=== PATIENT | female | born 1970 | race Caucasian/White ===

== ENCOUNTER 2020-08-02 10:26 | Outpatient (CLI) | payer MEDICAID, SELFPAY ==
--- NOTE | 2020-08-02 10:34 | MM_ITS ---
WS: [id number] BILATERAL DIGITAL SCREENING MAMMOGRAPHY WITH CAD CLINICAL INFORMATION: SCREENING HISTORY: Screening mammogram. No current complaints. COMPARISON: TECHNIQUE: Bilateral CC and MLO views. FINDINGS: Scattered fibroglandular densities bilaterally. Stable bilateral nodular breast tissue. No suspicious focal mass, asymmetry, calcifications, or architectural distortion. No evidence of malignancy. Punct ate calcifications right breast. MM/[place] [id number] IMPRESSION: BI-RADS: 2-Benign FOLLOW UP: 1 Year Follow-up Recommend return to annual screening mammography.
== END 2020-08-02 10:27 | disposition home or self-care (01) ==
LOC: RADSHAW 10:32
PROVIDERS: PCP Nurse Practitioner Family; Visit Provider Nurse Practitioner Family
DX: Z12.31 Encounter for screening mammogram for malignant neoplasm of breast (principal)
CPT/HCPCS: 77067

== ENCOUNTER 2020-11-10 08:01 | Emergency (ER) | payer MEDICAID, SELFPAY ==
[2020-11-10 08:12] VITALS: BP 126/79; PULSE 71; RESP 15; TEMP 36.1; O2SAT 96; BMI 33.8
--- NOTE | 2020-11-10 08:17 | W.ED.FEMALGU ---
HPI - Female Genitourinary General: Chief complaint: Urogenital-Female Stated complaint: urinary pain Time Seen by Provider: 11/10/20 08:05 History of Present Illness: HPI Narrative: Patient is a 50-year-old female comes to the ED with UTI symptoms. Patient reports a past medical history of kidney stones and has had a total hysterectomy. Patient had a UTI approximately 2 weeks ago that resolved after taking some antibiotics. Symptoms started 2 days ago. Patient says she has urinary frequency, hematuria, burning sensation when urinating and pressure in her bladder. Denies any fever, chills, abdominal pain, nausea/vomiting. Associated symptoms: Deny abdominal pain, headache(s) or nausea Review of Systems Const: Denies: fever(s), chills or fatigue Eyes: Denies: change in vision or eye discomfort ENMT: Denies: throat pain, odynophagia, nasal discharge or nasal congestion Card: Denies: chest pain, palpitations, edema, swelling of feet/ankles, dyspnea on exertion or orthopnea Resp: Denies: dyspnea, productive cough or non-productive cough GI: Denies: abdominal pain, nausea, vomiting, diarrhea, constipation or hematochezia : Reports: dysuria, urinary frequency (Increase) and hematuria; Denies: flank pain Musc: Denies: neck pain, back pain or extremity swelling Skin/Breast: Denies: rash or new lesions Neuro: Denies: headache(s), numbness in extremities or weakness in extremities PFS ED PFSH: Social History Smoking and tobacco status: current every day smoker cigarettes Packs smoked per day: 0.5 Alcohol intake: current Alcohol intake frequency: few times a month Substance/Drug Use: current Substance/Drug use frequency: daily Substance/Drug use type: Marijuana Physical Exam Narrative: EXAM NARRATIVE: Patient is a 50-year-old female that appears nontoxic and in no acute distress or pain. Const: COMMON NORMALS: no acute distress, patient oriented x3 and alert GENERAL APPEARANCE: cooperative and comfortable NUTRITIONAL APPEARANCE: overweight HENMT: COMMON NORMALS: normocephalic HEAD & SCALP: normocephalic MOUTH: Normal oral and palatal mucosa present THROAT: posterior oropharynx normal and uvula midline Neck/C-Spine: COMMON NORMALS: supple GENERAL: Yes normal visual inspection Resp: COMMON NORMALS: normal respiratory effort, No retractions, No use of accessory muscles and clear to auscultation bilaterally AUSCULTATION: clear to auscultation bilaterally Cardio: COMMON NORMALS: regular rate, regular rhythm, S1 normal heart sound present, S2 normal heart sound present, No gallops present (Cardio), No clicks present (Cardio), No murmurs present (Cardio) and Peripheral pulses 2+ throughout RATE: regular rate RHYTHM: regular rhythm HEART SOUNDS: S1 normal heart sound present and S2 normal heart sound present PERIPHERAL PULSES: Peripheral pulses 2+ throughout GI: COMMON NORMALS: Normal to inspection, nondistended, normoactive bowel sounds present, Soft to palpation, non-tender and no masses PALPATION: Yes Soft to palpation OTHER: No abdominal tenderness upon palpation. : COMMON NORMALS: Yes no CVA tenderness BLADDER/KIDNEY EXAM: Yes no CVA tenderness Back/Pelvis: COMMON NORMALS: no CVA tenderness Extremity: COMMON NORMALS: normal to inspection Neuro: COMMON NORMALS: patient oriented x3 and moves all extremities SENSORIUM/ORIENTATION: Yes alert Skin: GENERAL SKIN EXAM: dry skin Course Vital Signs: Vital signs: Vital Signs Temperature 97.0 F L 11/10/20 08:12 Pulse Rate 70 11/10/20 09:14 Respiratory Rate 18 11/10/20 09:14 Blood Pressure 120/81 11/10/20 09:14 Pulse Oximetry 98 11/10/20 09:14 MDM - Female MDM Narrative: Medical decision making narrative: Patient is a 50-year-old female comes to the ED with UTI symptoms. Exam shows a nontoxic-appearing 50-year-old female in no acute distress or pain. Vitals are stable. CBC and CMP were unremarkable. UA showed signs of UTI. Patient was diagnosed with UTI and discharged home on a prescription of Bactrim. She was told follow-up with PCP in 7 to 10 days for reevaluation. Return to ED precautions given. Patient understood agree with plan. Lab Data: Attestation: I reviewed the patient's lab results. Labs: Lab Results 11/10/20 11/10/20 11/10/20 Range/Units 08:20 08:20 08:20 WBC 10.0 (4.0-10.0) 10^3/ uL RBC 4.93 (4.1-5.3) 10^6/u L Hgb 15.1 (11.5-15.3) g/dL Hct 44.9 (37.0-47.0) % MCV 91.1 (81-99) fL MCH 30.6 (28.0-34.0) pg MCHC 33.6 (30.0-36.0) g/dL RDW 12.8 (12.1-15.1) % Plt Count 365 (130-400) 10^3/c mm MPV 9.7 (7.4-10.4) fL Neut % (Auto) 59.5 % Lymph % (Auto) 27.4 % [place] % (Auto) 9.4 % Eos % (Auto) 2.6 % Baso % (Auto) 0.8 % Neut # (Auto) 5.95 (1.8-7.7) 10^3/u L Lymph # (Auto) 2.7 (0.8-4.8) 10^3/u L [place] # (Auto) 0.9 (0.2-0.9) 10^3/u L Eos # (Auto) 0.3 (0.0-0.8) 10^3/u L Baso # (Auto) 0.1 (0.0-0.1) 10^3/u L Nucleated RBC % (a uto) 0 % Nucleated RBCs # 0.0 /100WBC Sodium 137 (136-145) mmol/L Potassium 4.0 (3.5-5.1) mmol/L Chloride 104 (98-107) mmol/L Carbon Dioxide 24 (22-29) mmol/L Anion Gap 13.0 (5-19) BUN 16 (6-20) mg/dL Creatinine 0.5 (0.5-0.9) mg/dL GFR Calculation 129.6 (90-130) mL/min Glucose 108 (65-115) mg/dL Calculated Osmolal ity 286 (285-295) mOsm/k g Calcium 8.5 (8.5-10.5) mg/dL Total Bilirubin 0.3 (0.15-1.2) mg/dL AST 12 (0-32) U/L ALT 9 (0-33) U/L Alkaline Phosphata se 56 (35-105) IU/L Total Protein 6.7 (6.6-8.7) g/dL Albumin 4.0 (3.5-5.2) g/dL Globulin 2.7 (1.3-4.6) g/dL Lipase 29 (13-60) U/L Urine Color [place] (Yellow) Urine Appearance Clear (CLEAR) Urine pH 5 (5-7) Ur Specific Gravit y 1.020 (1.005-1.030) Urine Protein 3+ H (Negative) Urine Glucose (UA) Norm (Normal) Urine Ketones Negative (Negative) Urine Blood 2+ H (Negative) Urine Nitrate Not tested A (Negative) Urine Bilirubin 2+ H (Negative) Urine Urobilinogen 12 H (Negative) mg/dL Ur Leukocyte Samantha ase 1+ H (Negative) Urine RBC 10-15 H (0-2) /hpf Urine WBC Too numerous to c nt H (0-5) /hpf Ur Squamous Epith Cells 5-10 H (0-5) /hpf Ur Transition Epit h Cell 0-4 /hpf Amorphous Sediment Not Reportable Urine Bacteria 1+ H (NONE) /hpf Discharge Plan Discharge Patient Disposition: Home Clinical Impression: Urinary tract infection Qualifiers: Urinary tract infection type: acute cystitis Hematuria presence: with hematuria Qualified Code(s): N30.01 - Acute cystitis with hematuria Condition: Stable Prescriptions: New Bactrim DS 800-160 mg tablet 1 tab PO BID 7 Days Qty: 14 RF: 0 Discharge Orders: Discharge ED (Routine); Ordered 11/10/20 Ordered By: Soto Guerra Referrals: Liliana Lam APN [Primary Care Provider] - Discharge Diet: Regular Discharge Activity: Resume usual activity Patient Instructions: Urinary Tract Infection in Women (ED) Activity Restrictions/Additional Instructions: Follow-up with medical provider at your next scheduled appointment on this coming Friday. Take medications as prescribed. Drink plenty of water to help flush out infection. Return to the ER or your medical provider if condition worsens. Please read and understand discharge instructions. If any questions, please ask. 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
[2020-11-10 08:33] LABS: Basophils # 0.1 10^3/uL (0.0-0.1); Basophils % 0.8 %; Eosinophils # 0.3 10^3/uL (0.0-0.8); Eosinophils % 2.6 %; Hematocrit 44.9 % (37.0-47.0); Hemoglobin 15.1 g/dL (11.5-15.3); Lymphocytes # 2.7 10^3/uL (0.8-4.8); Lymphocytes % 27.4 %; Mean Corpuscular HGB Conc 33.6 g/dL (30.0-36.0); Mean Corpuscular Hemoglobin 30.6 pg (28.0-34.0); Mean Corpuscular Volume 91.1 fL (81-99); Mean Platelet Volume 9.7 fL (7.4-10.4); Monocytes # 0.9 10^3/uL (0.2-0.9); Monocytes % 9.4 %; Neutrophils # 5.95 10^3/uL (1.8-7.7); Neutrophils % 59.5 %; Nucleated Red Blood Cells % 0 %; Platelet Count 365 10^3/cmm (130-400); Red Blood Count 4.93 10^6/uL (4.1-5.3); Red Cell Distribution Width 12.8 % (12.1-15.1)
[2020-11-10 08:52] LABS: Alanine Aminotransferase 9 U/L (0-33); Alkaline Phosphatase 56 IU/L (35-105); Aspartate Amino Transferase 12 U/L (0-32); Blood Urea Nitrogen 16 mg/dL (6-20); Calcium 8.5 mg/dL (8.5-10.5); Carbon Dioxide 24 mmol/L (22-29); Chloride 104 mmol/L (98-107); Globulin 2.7 g/dL (1.3-4.6); Glomerular Filtration Rate 129.6 mL/min (90-130); Glucose 108 mg/dL (65-115); Lipase 29 U/L (13-60); Osmolality Calculated 286 mOsm/kg (285-295); Sodium 137 mmol/L (136-145); Total Bilirubin 0.3 mg/dL (0.15-1.2); Total Protein 6.7 g/dL (6.6-8.7)
[2020-11-10 08:56] LABS: Blood Urine 2+ (Negative); Glucose Urine UA Norm (Normal); Ketones Urine Negative (Negative); Protein Urine 3+ (Negative); Urine Appearance Clear (CLEAR); Urine Color Orange (Yellow); pH Urine 5 (5-7)
[2020-11-10 08:57] LABS: Bilirubin Urine 2+ (Negative); Leukocyte Esterase Urine 1+ (Negative); Nitrate Urine Not Tested (Negative); Urobilinogen Urine 12 mg/dL (Negative); WBC Urine TOO NUMEROUS TO CNT /hpf (0-5)
[2020-11-10 08:58] LABS: Bacteria Urine 1+ /hpf; Transitional Epi Cells Urine 0-4 /hpf
[2020-11-10 08:59] LABS: Add Urine Culture? Yes
[2020-11-10] MEDS: sulfamethoxazole-trimeth DS 160-800 mg Tablet 1 TAB PO (09:09)
[2020-11-10 09:14] VITALS: BP 120/81; PULSE 70; RESP 18; O2SAT 98
== END 2020-11-10 09:15 | disposition home or self-care (01) ==
PROVIDERS: Emergency Provider Physician Assistant; PCP Nurse Practitioner Family
DX: N30.01 Acute cystitis with hematuria (principal); F17.210 Nicotine dependence, cigarettes, uncomplicated
CPT/HCPCS: 80053; 81001; 83690; 85025; 87077; 87086; 87186; 99283

== ENCOUNTER 2020-12-13 16:13 | Emergency (ER) | payer MEDICAID, SELFPAY ==
[2020-12-13 16:50] VITALS: BP 116/71; PULSE 75; RESP 18; TEMP 36.7; O2SAT 95; BMI 32.9
--- NOTE | 2020-12-13 17:06 | W.ED.EXTPRO ---
HPI - Extremity Problem General: Chief complaint: Extremity Problem,Nontraumatic Stated complaint: LEFT ARM INJURY Time Seen by Provider: 12/13/20 17:05 Source: patient Mode of arrival: ambulatory Limitations: no limitations History of Present Illness: HPI Narrative: Patient comes in today with left proximal forearm pain. Patient denies any injury or fall. Patient reports area is just tender just distal to the dorsal elbow along the proximal ulna. Patient reports pain since Friday. MD Complaint: extremity pain Onset (ago): day(s) Pain Consistency: constant Location: left and elbow Quality: aching and other (Tender to touch) Review of Systems General: Reports: 10 or more systems reviewed and unremarkable except in HPI and below Musc: Reports: other (Left proximal forearm pain) PFSH ED PFSH: Social History Smoking and tobacco status: current every day smoker cigarettes Packs smoked per day: 0.5 Alcohol intake: current Alcohol intake frequency: few times a month Physical Exam Const: COMMON NORMALS: no acute distress and patient oriented x3 GENERAL APPEARANCE: cooperative HENMT: COMMON NORMALS: normocephalic and Normal external nose present HEAD & SCALP: normal to inspection and normocephalic NOSE: Normal external nose present Eye: GENERAL EYE: appearance normal, both eyes and all related structures Neck/C-Spine: COMMON NORMALS: full ROM Chest: COMMONS NORMALS: normal inspection of the chest Resp: COMMON NORMALS: normal respiratory effort EFFORT & INSPECTION: Yes able to speak in complete sentences Cardio: COMMON NORMALS: regular rate and regular rhythm RATE: regular rate RHYTHM: regular rhythm GI: COMMON NORMALS: non-tender Extremity: NARRATIVE EXTREMITY EXAM: Area appears normal, no sign of ecchymosis, swelling, deformity. Area of the proximal ulnar is tender to touch. Neuro: COMMON NORMALS: patient oriented x3 and moves all extremities Psych: COMMON NORMALS: mental status grossly normal and cooperative Skin: COMMON NORMALS: no rashes or lesions noted GENERAL SKIN EXAM: no rashes or lesions noted Course Vital Signs: Vital signs: Vital Signs Temperature 98.0 F 12/13/20 16:50 Pulse Rate 75 12/13/20 16:50 Respiratory Rate 18 12/13/20 16:50 Blood Pressure 116/71 12/13/20 16:50 Pulse Oximetry 95 12/13/20 16:50 MDM - Extremity (Nontraumatic) MDM Narrative: Medical decision making narrative: Patient comes in for left elbow pain. Patient denies any injury. On exam we note no signs of ecchymosis, swelling, or deformity. Patient does have tenderness to the proximal area of the forearm on the ulnar side. Differential diagnosis includes but not limited to tendinitis, strain, bursitis. X-ray noted no fractures or abnormalities. Reviewed exam with patient with recommendations for treatment and follow-up. Patient reported understanding agreed to plan. No signs of serious illness or injury was noted. Discharge Plan Discharge Patient Disposition: Home Clinical Impression: Tendinitis of left elbow Condition: Stable Prescriptions: New prednisone 20 mg tablet 20 mg PO BID 3 Days Qty: 6 RF: 0 No Action ibuprofen 800 mg Tablet 800 mg PO Q8H PRN (Reason: Pain) RF: 0 lisinopril-hydrochlorothiazide 20-25 mg Tablet 1 tab PO DAILY RF: 0 albuterol sulfate 90 mcg/actuation Hfa Aerosol Inhaler 2 puff INHALATION 6XD PRN (Reason: Shortness Of Breath) RF: 0 bupropion HCl 300 mg Tablet Extended Release 24 Hr 300 mg PO DAILY RF: 0 Estrogen Patch 0.1 ea transdermal Q7D RF: 0 Discharge Orders: Discharge ED (Routine); Ordered 12/13/20 Ordered By: Emeterio Sanches Referrals: Liliana Lam APN [Primary Care Provider] - Discharge Diet: Usual diet Discharge Activity: Increase activity as tolerated Patient Instructions: Opioid Safety Activity Restrictions/Additional Instructions: Use Kan wrap to the elbow for comfort and support. Use acetaminophen along with ibuprofen for pain control. Use ice or heat to the area for further pain relief. Drink plenty of water with medication. Follow-up with primary care for further instruction. Return to the emergency room for new concerns. 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
--- NOTE | 2020-12-13 17:14 | XRR_ITS ---
PROCEDURE INFORMATION: Exam: XR Left Forearm Exam date and time: 12/13/2020 5:23 PM Age: 50 years old Clinical indication: Pain; Lower or forearm; Left; Additional info: Pain, proximal forearm TECHNIQUE: Imaging protocol: XR Left forearm. Views: 2 views. COMPARISON: No relevant prior studies available. FINDINGS: Bones/joints: Normal. Soft tissues: Normal. XR/XR forearm LT 2V [id number] IMPRESSION: Negative for fracture or dislocation
== END 2020-12-13 18:03 | disposition home or self-care (01) ==
PROVIDERS: Emergency Provider Nurse Practitioner Family; PCP Nurse Practitioner Family
DX: M77.8 Other enthesopathies, not elsewhere classified (principal); F17.210 Nicotine dependence, cigarettes, uncomplicated
CPT/HCPCS: 73090; 99282

== ENCOUNTER 2021-04-16 12:45 | Outpatient (CLI) | payer MEDICAID, SELFPAY ==
--- NOTE | 2021-04-16 12:57 | XR_ITS ---
WS: [id number] Right wrist, 4 views, 04/16/2021 Clinical Data: PAIN IN RIGHT WRIST Comparison: None. Findings: No fractures or dislocations are seen. The carpal bones are intact. There is no soft tissue swelling. The distal radius and ulna are not remarkable. XR/XR wrist RT min 3V* [id number] Impression: Negative right wrist.
== END 2021-04-16 12:46 | disposition home or self-care (01) ==
LOC: RAD 12:49
PROVIDERS: PCP Nurse Practitioner Family; Visit Provider Nurse Practitioner Family
DX: M25.531 Pain in right wrist (principal)
CPT/HCPCS: 73110

== ENCOUNTER → 2021-10-04 10:46 | Outpatient (BNVA) | payer MEDICAID, SELFPAY | PROVIDERS: PCP Nurse Practitioner Family; Visit Provider Family Medicine | DX: N93.9 Abnormal uterine and vaginal bleeding, unspecified (principal); E89.40 Asymptomatic postprocedural ovarian failure; Z13.220 Encounter for screening for lipoid disorders; Z13.6 Encounter for screening for cardiovascular disorders; Z11.59 Encounter for screening for other viral diseases; Z11.4 Encounter for screening for human immunodeficiency virus [HIV]; Z71.1 Person with feared health complaint in whom no diagnosis is made; I10 Essential (primary) hypertension; Z76.89 Persons encountering health services in other specified circumstances; F41.1 Generalized anxiety disorder | CPT/HCPCS: 80053; 80061; 84443; 85025; 86431; 86803; 87522; 87806 ==

== ENCOUNTER 2021-11-19 04:52 | Emergency (ER) | payer MEDICAID, SELFPAY ==
[2021-11-19 04:59] VITALS: BP 146/107; PULSE 102; RESP 21; TEMP 36.7; O2SAT 97; BMI 31.1
[2021-11-19 05:18] VITALS: BP 173/106; PULSE 93; RESP 20; O2SAT 97
--- NOTE | 2021-11-19 05:29 | ECG_ITS ---
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 Measurements Intervals [place] Rate: 87 P: 58 HI: 168 QRS: 54 QRSD: 95 T: 59 QT: 353 QTc: 426 Interpretive Statements SINUS RHYTHM Compared to ECG 01/18/2016 09:02:15 No significant changes Electronically Signed On 11-19-2021 21:34:42 CDT by Mayank Sparrow M.D. [email or web address] [email or web address]/store/[id number]
[2021-11-19] MEDS: orphenadrine 30 mg/mL Inj 2 mL 60 MG IM (05:35)
[2021-11-19 06:00] LABS: Basophils # 0.1 10^3/uL (0.0-0.1); Basophils % 0.7 %; Eosinophils # 0.1 10^3/uL (0.0-0.8); Eosinophils % 0.7 %; Hematocrit 42.1 % (37.0-47.0); Hemoglobin 13.9 g/dL (11.5-15.3); Lymphocytes # 4.3 10^3/uL (0.8-4.8); Lymphocytes % 31.1 %; Mean Corpuscular Hemoglobin 30.1 pg (28.0-34.0); Mean Corpuscular Volume 91.1 fl (81-99); Monocytes # 1.1 10^3/uL (0.2-0.9); Neutrophils # 8.19 10^3/uL (1.8-7.7); Neutrophils % 59.2 %; Nucleated Red Blood Cells % 0 %; Platelet Count 394 10^3/cmm (130-400); Red Blood Count 4.62 10^6/uL (4.1-5.3); Red Cell Distribution Width 12.5 % (12.1-15.1); White Blood Count 13.8 10^3/uL (4.0-10.0)
[2021-11-19 06:19] LABS: Alanine Aminotransferase 14 U/L (0-33); Albumin Level 3.8 g/dL (3.5-5.2); Alkaline Phosphatase 75 IU/L (35-105); Anion Gap 16.2 (5-19); Aspartate Amino Transferase 14 U/L (0-32); Blood Urea Nitrogen 10 mg/dL (6-20); Calcium 9.3 mg/dL (8.5-10.5); Carbon Dioxide 25 mmol/L (22-29); Chloride 104 mmol/L (98-107); Creatine Phosphokinase 45 U/L (26-192); Globulin 2.8 g/dL (1.3-4.6); Glomerular Filtration Rate 129.1 mL/min (90-130); Glucose 103 mg/dL (65-115); Osmolality Calculated 293 mOsm/kg (285-295); Potassium 3.2 mmol/L (3.5-5.1); Sodium 142 mmol/L (136-145); Total Bilirubin 0.3 mg/dL (0.15-1.2); Total Protein 6.6 g/dL (6.6-8.7)
[2021-11-19 06:21] LABS: Troponin T (5th) Once 8 ng/L (0-10)
[2021-11-19] MEDS: potassium chloride ER 20 mEq Tablet 40 MEQ PO (06:45)
[2021-11-19 06:48] VITALS: PULSE 88; RESP 16; O2SAT 99
--- NOTE | 2021-11-23 19:05 | ED_ITS ---
HPI - General Adult General: Chief complaint: General Medical Stated complaint: Body pain/Muscle spasms Time Seen by Provider: 11/19/21 05:05 Source: patient History of Present Illness: 51-year-old female who comes in with neck and shoulder pain. She thinks that she is having muscle pain related to helping move furniture 4 days ago or so. She is tried rubs, and some massage with minimal improvement. Onset (ago): day(s) Location: neck and upper extremity Radiation: back Quality: aching Pain Consistency: constant Relieving factors: none Exacerbating factors: movement Associated symptoms: Reports headache(s) and nausea; Deny chest pain, cough, dyspnea, fevers/chills, short of breath, vomiting or weakness Review of Systems Card: Denies: chest pain Resp: Denies: dyspnea, productive cough or non-productive cough GI: Reports: nausea; Denies: vomiting Musc: Reports: neck pain Neuro: Reports: headache(s) PFSH ED PFSH: Social History Smoking and tobacco status: never smoked Alcohol intake: current Alcohol intake frequency: few times a month Physical Exam Const: GENERAL APPEARANCE: cooperative; not ill appearing HENMT: COMMON NORMALS: normocephalic, atraumatic and external ears normal HEAD & SCALP: normocephalic and atraumatic EXTERNAL EAR: Yes external ears normal Eye: COMMON NORMALS: Equal, round and reactive pupils present and EOMs intact bilaterally PUPIL: Yes Equal, round and reactive pupils present Chest: COMMONS NORMALS: normal inspection of the chest Resp: COMMON NORMALS: normal respiratory effort, No use of accessory muscles and clear to auscultation bilaterally AUSCULTATION: clear to auscultation bilaterally Cardio: COMMON NORMALS: regular rate and regular rhythm RATE: regular rate RHYTHM: regular rhythm GI: COMMON NORMALS: Normal to inspection, nondistended, normoactive bowel sounds present Back/Pelvis: OTHER: Exam of the cervical spine reveals no midline tenderness. She has significant muscle spasm of the paraspinal musculature in the left cervical and upper thoracic spine. She has spasm of her sternocleidomastoid. She has appearance of torticollis. Neuro: RUBI COMA SCALE: document GCS findings [place] coma scale eye opening: Spontaneous [place] coma scale verbal response: Orientated Rubi coma scale motor response: Obey commands Rubi coma scale total score: 15 Course Vital Signs: Vital signs: Vital Signs Temperature 98.1 F 11/19/21 04:59 Pulse Rate 88 11/19/21 06:48 Respiratory Rate 16 11/19/21 06:48 Blood Pressure 173/106 11/19/21 05:18 Pulse Oximetry 99 11/19/21 06:48 MDM - General Adult Medical Decision Making Laboratory findings show significant hypokalemia. This is repleted. May be the cause of her torticollis. She is given muscle relaxers and pain medication with some improvement as well. She will be allowed discharged with symptomatic treatment. She was told to have her potassium retested early in the week Lab Data : 11/19/21 05:49 11/19/21 05:49 Laboratory Results WBC 13.8 10^3/uL (4.0-10.0) H 11/19/21 05:49 RBC 4.62 10^6/uL (4.1-5.3) 11/19/21 05:49 Hgb 13.9 g/dL (11.5-15.3) 11/19/21 05:49 Hct 42.1 % (37.0-47.0) 11/19/21 05:49 MCV 91.1 fl (81-99) 11/19/21 05:49 MCH 30.1 pg (28.0-34.0) 11/19/21 05:49 MCHC 33.0 g/dL (30.0-36.0) 11/19/21 05:49 RDW 12.5 % (12.1-15.1) 11/19/21 05:49 Plt Count 394 10^3/cmm (130-400) 11/19/21 05:49 MPV 10.0 fL (7.4-10.4) 11/19/21 05:49 Neut % (Auto) 59.2 % 11/19/21 05:49 Lymph % (Auto) 31.1 % 11/19/21 05:49 [place] % (Auto) 8.0 % 11/19/21 05:49 Eos % (Auto) 0.7 % 11/19/21 05:49 Baso % (Auto) 0.7 % 11/19/21 05:49 Neut # (Auto) 8.19 10^3/uL (1.8-7.7) H 11/19/21 05:49 Lymph # (Auto) 4.3 10^3/uL (0.8-4.8) 11/19/21 05:49 [place] # (Auto) 1.1 10^3/uL (0.2-0.9) H 11/19/21 05:49 Eos # (Auto) 0.1 10^3/uL (0.0-0.8) 11/19/21 05:49 Baso # (Auto) 0.1 10^3/uL (0.0-0.1) 11/19/21 05:49 Nucleated RBC % (auto) 0 % 11/19/21 05:49 Nucleated RBCs # 0.0 /100WBC 11/19/21 05:49 Sodium 142 mmol/L (136-145) 11/19/21 05:49 Potassium 3.2 mmol/L (3.5-5.1) L 11/19/21 05:49 Chloride 104 mmol/L (98-107) 11/19/21 05:49 Carbon Dioxide 25 mmol/L (22-29) 11/19/21 05:49 Anion Gap 16.2 (5-19) 11/19/21 05:49 BUN 10 mg/dL (6-20) 11/19/21 05:49 Creatinine 0.5 mg/dL (0.5-0.9) 11/19/21 05:49 GFR Calculation 129.1 mL/min (90-130) 11/19/21 05:49 Glucose 103 mg/dL (65-115) 11/19/21 05:49 Calculated Osmolality 293 mOsm/kg (285-295) 11/19/21 05:49 Calcium 9.3 mg/dL (8.5-10.5) 11/19/21 05:49 Total Bilirubin 0.3 mg/dL (0.15-1.2) 11/19/21 05:49 AST 14 U/L (0-32) 11/19/21 05:49 ALT 14 U/L (0-33) 11/19/21 05:49 Alkaline Phosphatase 75 IU/L (35-105) 11/19/21 05:49 Creatine Kinase 45 U/L (26-192) 11/19/21 05:49 Troponin T Gen 5 ng/L 8 ng/L (0-10) 11/19/21 05:49 Total Protein 6.6 g/dL (6.6-8.7) 11/19/21 05:49 Albumin 3.8 g/dL (3.5-5.2) 11/19/21 05:49 Globulin 2.8 g/dL (1.3-4.6) 11/19/21 05:49 Discharge Plan Discharge Patient Disposition: Home Clinical Impression: Acute hypokalemia, Acute torticollis Condition: Stable Prescriptions: New tizanidine 4 mg tablet 4 mg PO Q8H PRN (Reason: muscle spasticity) Qty: 20 0RF No Action losartan 50 mg tablet 50 mg PO DAILY Qty: 30 5RF buspirone 5 mg tablet 5 mg PO TID PRN (Reason: anxiety) Qty: 30 5RF estradiol 0.1 mg/24 hr patch semiweekly 1 patch topical .weekly 30 Days Qty: 8 1RF ibuprofen 800 mg Tablet 800 mg PO Q8H PRN (Reason: Pain) 0RF Rx Instructions: take with food albuterol sulfate 90 mcg/actuation Hfa Aerosol Inhaler 2 puff INHALATION 6XD PRN (Reason: Shortness Of Breath) 0RF Discharge Orders: Discharge ED (Routine); Ordered 11/19/21 Ordered By: Sacha Stinson Referrals: Migue Castillo DO [Primary Care Provider] - 4-7 days Discharge Diet: Advance as tolerated Discharge Activity: Increase activity as tolerated Patient Instructions: Hypokalemia (ED), Spasmodic Torticollis (ED) Activity Restrictions/Additional Instructions: Return for worsening muscle spasm despite treatment, fever, shortness of breath, chest discomfort, any other concerning symptoms medication as directed. You should have your potassium rechecked later this week. 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
== END 2021-11-19 06:50 | disposition home or self-care (01) ==
PROVIDERS: Emergency Provider Emergency Medicine; PCP Family Medicine
DX: E87.6 Hypokalemia (principal); M43.6 Torticollis; Z79.890 Hormone replacement therapy
CPT/HCPCS: 80053; 82550; 84484; 85025; 93005; 96372; 99284; J2360

== ENCOUNTER → 2022-06-05 09:51 | Outpatient (BNVA) | payer MEDICAID, SELFPAY | PROVIDERS: PCP Family Medicine; Visit Provider Family Medicine | DX: I10 Essential (primary) hypertension (principal); F41.0 Panic disorder [episodic paroxysmal anxiety]; F41.1 Generalized anxiety disorder; G89.29 Other chronic pain; H53.9 Unspecified visual disturbance; R51.9 Headache, unspecified; J45.909 Unspecified asthma, uncomplicated; E89.40 Asymptomatic postprocedural ovarian failure; M25.541 Pain in joints of right hand; Z12.39 Encounter for other screening for malignant neoplasm of breast; M25.542 Pain in joints of left hand | CPT/HCPCS: 80053; 80061; 84443; 85025; 85651; 86038; 86140; 86200; 86431 ==

== ENCOUNTER 2022-07-24 14:51 | Outpatient (CLI) | payer MEDICAID, SELFPAY ==
--- NOTE | 2022-07-24 15:15 | MM_ITS ---
WS: [id number] BILATERAL 3D TOMOSYNTHESIS DIGITAL SCREENING MAMMOGRAPHY WITH CAD CLINICAL INFORMATION: LUMPS IN BREAST HISTORY: Screening mammogram. RIGHT breast pain and lump. COMPARISON: 2020 TECHNIQUE: Bilateral CC and MLO views. FINDINGS: Scattered fibroglandular densities bilaterally. A few incidental punctate calcifications. No abnormal ities deep to the palpable marker RIGHT breast. Ultrasound RIGHT breast is pending. LEFT breast is un changed in appearance. ULTRASOUND BREAST RIGHT TECHNIQUE: Ultrasound bilateral breast focused area of concern. CLINICAL INFORMATION: LUMPS IN BREAST FINDINGS: RIGHT BREAST: Ultrasound RIGHT breast in the areas of concern at the 9:00 position and RIGHT axilla. Normal underlying parenchymal tissue. No cystic or solid lesions. No suspicious lesions to target for biopsy. Ultrasound RIGHT axilla is normal. MM/[place] [id number] IMPRESSION: BI-RADS: 2-Benign FOLLOW UP: 1 Year Follow-up Recommend return to annual screening mammography.
== END 2022-07-24 14:52 | disposition home or self-care (01) ==
PROVIDERS: PCP Family Medicine; Visit Provider Family Medicine
DX: N64.4 Mastodynia (principal); N63.10 Unspecified lump in the right breast, unspecified quadrant; N63.20 Unspecified lump in the left breast, unspecified quadrant
CPT/HCPCS: 76642; 77062; G0279

== ENCOUNTER 2022-07-30 09:41 | Outpatient (CLI) | payer MEDICAID, SELFPAY ==
--- NOTE | 2022-07-30 09:30 | CT_ITS ---
WS: [id number] CT HEAD TECHNIQUE: Noncontrast CT of the head obtained from the skullbase to the vertex. CLINICAL INFORMATION: Neoplasm of the head, soft tissue. COMPARISON: None. DLP: 954.[address] scans at [facility] use at least one of these dose optimization techniques: automated e xposure control; mA and/or kV adjustment per patient size (includes targeted exams where dose is matc hed to clinical indication); or iterative reconstruction. FINDINGS: No evidence of intracranial hemorrhage or mass effect. Ventricular system and basal cisterns are iniguez nt. Calcified scalp lesion overlying the frontal parietal calvarium at the vertex. This measures appr oximately 2.1 x 1.1 CM. No erosive changes in the underlying calvarium. Paranasal sinuses and mastoid air cells are well aerated. Intracranial vascular calcification. No oth er suspicious findings. CT/CT head wo con* [id number] IMPRESSION: 1. No evidence of intracranial hemorrhage or mass effect. 2. Calcified scalp lesion overlying the frontoparietal calvarium. No erosive c hanges. This has a nonspecific appearance but considerations include trichilemm al cyst, calcified sebaceous cyst, or possibly hemangioma. No erosive changes i n the underlying calvarium. 3. No other remarkable findings.
== END 2022-07-30 09:42 | disposition home or self-care (01) ==
PROVIDERS: PCP Family Medicine; Visit Provider Family Medicine
DX: D48.7 Neoplasm of uncertain behavior of other specified sites (principal)
CPT/HCPCS: 70450

== ENCOUNTER 2023-05-02 13:03 | Emergency (ER) | payer MEDICAID, SELFPAY ==
[2023-05-02 13:09] VITALS: BP 170/130; PULSE 87; RESP 22; TEMP 36.6; O2SAT 97; BMI 29.9
--- NOTE | 2023-05-02 13:42 | ECG_ITS ---
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 Measurements Intervals [place] Rate: 72 P: 61 NM: 161 QRS: 62 QRSD: 94 T: 70 QT: 406 QTc: 447 Interpretive Statements SINUS RHYTHM Compared to ECG 11/19/2021 05:43:19 No significant changes Electronically Signed On 05-02-2023 13:53:15 CDT by Luis Alberto Turner M.D. [id number]
--- NOTE | 2023-05-02 13:52 | PC.PHAR ---
pt states she takes care of her own medications-pt states she changes her lauryn patch twice a week rx filled 03/31/23 1 patch weekly-pt states she is still taking losartan 100mg qam rx filled 03/07/23 30d/s rx has refills-
[2023-05-02] MEDS: nicotine 2 mg Gum 4 MG BUCCAL (13:58)
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
[2023-05-02 14:04] LABS: Basophils # 0.1 10^3/uL (0.0-0.1); Basophils % 1.2 %; Eosinophils # 0.1 10^3/uL (0.0-0.8); Eosinophils % 1.3 %; Hematocrit 46.5 % (36-47); Lymphocytes # 3.2 10^3/uL (0.8-4.8); Lymphocytes % 41.7 %; Mean Corpuscular HGB Conc 33.3 g/dL (30-55); Mean Corpuscular Hemoglobin 30.5 pg (27-33); Mean Corpuscular Volume 91.5 fl (85-98); Mean Platelet Volume 9.6 fL (7.4-10.4); Monocytes # 0.7 10^3/uL (0.2-0.9); Monocytes % 8.8 %; Neutrophils # 3.56 10^3/uL (1.8-7.7); Neutrophils % 46.9 %; Nucleated Red Blood Cells % 0 %; Platelet Count 291 10^3/cmm (157-399); Red Blood Count 5.08 10^6/uL (3.85-5.65); Red Cell Distribution Width 12.3 % (12.1-15.1)
[2023-05-02 14:17] LABS: INR 1.01 (0.8-1.2)
[2023-05-02 14:44] LABS: Acetaminophen < 5.0 ug/mL (10-30); Alanine Aminotransferase 12 U/L (0-33); Albumin Level 4.2 g/dL (3.5-5.2); Alcohol Level < 10 mg/dL (0-10); Alkaline Phosphatase 65 U/L (35-105); Anion Gap 14.7 (5-19); Aspartate Amino Transferase 18 U/L (0-32); Blood Urea Nitrogen 8 mg/dL (6-20); Calcium 9.4 mg/dL (8.5-10.5); Carbon Dioxide 25 mmol/L (22-29); Chloride 104 mmol/L (98-107); Creatinine Clr Calc Pharmacy 151.8236; Glomerular Filtration Rate 166.3 mL/min (90-130); Glucose 96 mg/dL (65-115); Osmolality Calculated 288 mOsm/kg (285-295); Potassium 3.7 mmol/L (3.5-5.1); Salicylate < 0.3 mg/dL (3-10); Sodium 140 mmol/L (136-145); Thyroid Stimulating Hormone 1.04 uIU/mL (0.27-4.20); Total Bilirubin 0.5 mg/dL (0.15-1.2); Total Protein 7.2 g/dL (6.6-8.7)
--- NOTE | 2023-05-02 15:00 | PC.NURSE ---
Pt continues to cooperate at this time. Pt offered a drink and a blanket. Dr. Mack to come see.
[2023-05-02 16:13] LABS: Add Urine Microscopic? YES; Bilirubin Urine Neg (Negative); Blood Urine Trace (Negative); Glucose Urine UA Norm (Normal); Ketones Urine 1+ (Negative); Leukocyte Esterase Urine Negative (Negative); Nitrate Urine Negative (Negative); Protein Urine Neg (Negative); Specific Gravity, Urine 1.015 (1.005-1.030); Urine Appearance Clear (CLEAR); Urine Color Yellow (Yellow); Urobilinogen Urine Norm (Negative); pH Urine 6.5 (5-7)
[2023-05-02 16:15] LABS: Add Urine Culture? No; Amphetamines Screen Urine Positive (Negative); Bacteria Urine TRACE /hpf; Barbiturates Screen Urine Negative (Negative); Benzodiazepines Screen Urine Negative (Negative); Cocaine Screen Urine Negative (Negative); Opiate Screen Urine Negative (Negative); PCP Screen Urine Negative (Negative); RBC Urine 0-4 /hpf (0-2); Squamous Epithelial Cell Urine 0-4 /hpf (0-5); THC Screen Urine Positive (Negative); WBC Urine RARE /hpf (0-5)
== END 2023-05-02 16:45 | disposition home or self-care (01) ==
PROVIDERS: Emergency Provider Emergency Medicine; PCP Family Medicine
DX: Z04.6 Encounter for general psychiatric examination, requested by authority (principal); R45.6 Violent behavior; F17.210 Nicotine dependence, cigarettes, uncomplicated
CPT/HCPCS: 36415; 80053; 80306; 80307; 81001; 84443; 85025; 85610; 93005; 99284

== ENCOUNTER 2023-05-16 12:17 | Emergency (ER) | payer MEDICAID, SELFPAY ==
--- NOTE | 2023-05-16 12:18 | XRR_ITS ---
PROCEDURE INFORMATION: Exam: XR Chest Exam date and time: 05/16/2023 12:42 PM Age: 52 years old Clinical indication: Pain; Angina pectoris; Additional info: Chest pain TECHNIQUE: Imaging protocol: Radiologic exam of the chest. Views: 1 view. COMPARISON: CT abdomen pelvis w con* [id number] 11/15/2016 7:19 PM FINDINGS: Lungs: Unremarkable. No consolidation. Pleural spaces: Unremarkable. No pleural effusion. No pneumothorax. Heart/Mediastinum: Unremarkable. No cardiomegaly. Bones/joints: Unremarkable. XR/XR chest 1V portable [id number] IMPRESSION: No acute findings.
--- NOTE | 2023-05-16 12:21 | ECG_ITS ---
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 Measurements Intervals [place] Rate: 76 P: 64 [place]: 150 QRS: 60 QRSD: 90 T: 73 QT: 389 QTc: 438 Interpretive Statements SINUS RHYTHM WITH OCCASIONAL VENTRICULAR PREMATURE COMPLEXES Compared to ECG 05/02/2023 13:42:25 Ventricular premature complex(es) now present Electronically Signed On 05-16-2023 12:29:16 CDT by Luis Alberto Turner M.D. [email or web address] [email or web address] [facility].Valentin Uzhun/store/OM/[id number]
[2023-05-16 12:38] VITALS: BP 158/89; PULSE 78; RESP 18; TEMP 36.8; O2SAT 96
[2023-05-16 12:40] VITALS: BP 158/89; PULSE 81; RESP 16; O2SAT 98
--- NOTE | 2023-05-16 13:00 | ED_ITS ---
HPI - Chest Pain General: Chief Complaint: Chest Pain Stated Complaint: chest pain Time Seen by Provider: 05/16/23 12:30 Source: patient Mode of arrival: ambulatory History of Present Illness: 52-year-old female presents emergency room in custody of local PD. She is complaining of central chest pain that she has such as elevated blood pressure she has not had her blood pressure medicine the last several days. No radiation of the pain in the neck arms or back. She has no known history of coronary artery disease. She is not noticing that exacerbates or relieves. MD complaint: chest pain Onset (ago): minute(s) Timing of current episode: episodic Onset: during rest [facility] ED PFSH: Medical History (Updated 05/16/23 @ 16:21 by José Luis Peres DO) Psychiatric care Social History Smoking and tobacco/nicotine status: current every day tobacco/nicotine user cigarettes Packs smoked per day: 0.5 Alcohol intake: current Alcohol intake frequency: few times a month Substance/Drug Use: current Substance/Drug use frequency: daily Female Reproductive History: Spontaneous abortions: No Course Vital Signs: Vital signs: Vital Signs Temperature 98.2 F 05/16/23 12:38 Pulse Rate 81 05/16/23 12:40 Respiratory Rate 16 05/16/23 12:40 Blood Pressure 158/89 05/16/23 13:48 Pulse Oximetry 98 05/16/23 12:40 Oxygen Delivery Me thod Room Air 05/16/23 12:40 MDM - Chest Pain Medical Decision Making EKG does not show any acute changes cardiac enzymes trend is not positive. Patient asymptomatic at this time. Losartan start Toprol XL 25 daily also start baby aspirin daily. Case management to make arrangements for outpatient Lexiscan sestamibi stress test. Medical Records I reviewed the patient's medical records. Lab Data I reviewed the patient's lab results. 05/16/23 13:02 05/16/23 13:02 Radiology Impressions Chest X-Ray 05/16/23 12:18 IMPRESSION: No acute findings. Laboratory Results WBC 8.85 10^3/uL (3.29-11.43) 05/16/23 13:02 RBC 5.37 10^6/uL (3.85-5.65) 05/16/23 13:02 Hgb 16.40 g/dL (11.27-16.99) 05/16/23 13:02 Hct 49.3 % (36-47) H 05/16/23 13:02 MCV 91.8 fl (85-98) 05/16/23 13:02 MCH 30.5 pg (27-33) 05/16/23 13:02 MCHC 33.3 g/dL (30-55) 05/16/23 13:02 RDW 12.4 % (12.1-15.1) 05/16/23 13:02 Plt Count 312 10^3/cmm (157-399) 05/16/23 13:02 MPV 9.5 fL (7.4-10.4) 05/16/23 13:02 Neut % (Auto) 60.9 % 05/16/23 13:02 Lymph % (Auto) 28.1 % 05/16/23 13:02 [place] % (Auto) 9.0 % 05/16/23 13:02 Eos % (Auto) 1.0 % 05/16/23 13:02 Baso % (Auto) 0.8 % 05/16/23 13:02 Neut # (Auto) 5.38 10^3/uL (1.8-7.7) 05/16/23 13:02 Lymph # (Auto) 2.5 10^3/uL (0.8-4.8) 05/16/23 13:02 [place] # (Auto) 0.8 10^3/uL (0.2-0.9) 05/16/23 13:02 Eos # (Auto) 0.1 10^3/uL (0.0-0.8) 05/16/23 13:02 Baso # (Auto) 0.1 10^3/uL (0.0-0.1) 05/16/23 13:02 Nucleated RBC % (auto) 0 % 05/16/23 13:02 Nucleated RBCs # 0.0 /100WBC 05/16/23 13:02 Sodium 136 mmol/L (136-145) 05/16/23 13:02 Potassium 4.8 mmol/L (3.5-5.1) 05/16/23 13:02 Chloride 100 mmol/L (98-107) 05/16/23 13:02 Carbon Dioxide 26 mmol/L (22-29) 05/16/23 13:02 Anion Gap 14.8 (5-19) 05/16/23 13:02 BUN 11 mg/dL (6-20) 05/16/23 13:02 Creatinine 0.5 mg/dL (0.5-0.9) 05/16/23 13:02 GFR Calculation 128.6 mL/min (90-130) 05/16/23 13:02 Glucose 104 mg/dL (65-115) 05/16/23 13:02 Calculated Osmolality 288 mOsm/kg (285-295) 05/16/23 13:02 Calcium 10.0 mg/dL (8.5-10.5) 05/16/23 13:02 Total Bilirubin 0.3 mg/dL (0.15-1.2) 05/16/23 13:02 AST 14 U/L (0-32) 05/16/23 13:02 ALT 15 U/L (0-33) 05/16/23 13:02 Alkaline Phosphatase 64 U/L (35-105) 05/16/23 13:02 Troponin T Baseline 7 ng/L (0-10) 05/16/23 13:02 Troponin T 120 Minute 9.54 ng/L (0-10) 05/16/23 15:13 Delta Troponin T 2.54 ABS# (0-10) 05/16/23 15:13 Total Protein 7.1 g/dL (6.6-8.7) 05/16/23 13:02 Albumin 4.3 g/dL (3.5-5.2) 05/16/23 13:02 Globulin 2.8 g/dL (1.3-4.6) 05/16/23 13:02 All radiology interpretation(s) finalized by discharge Discharge Plan Discharge Patient Disposition: Home Clinical Impression: Atypical chest pain, HTN (hypertension) Condition: Stable Prescriptions: New Toprol XL 25 mg tablet extended release 24 hr 25 mg PO DAILY Qty: 30 0RF aspirin 81 mg tablet,delayed release (DR/EC) 81 mg PO DAILY Qty: 30 0RF Discontinued losartan 100 mg tablet 100 mg PO QAM No Action buspirone 5 mg tablet 5 mg PO TID PRN (Reason: anxiety) Qty: 30 5RF lorazepam [Ativan] 0.5 mg tablet 0.5 mg PO DAILY PRN (Reason: anxiety) Qty: 30 5RF tizanidine 4 mg tablet 4 mg PO BID PRN (Reason: Muscle Spasm) estradiol [Marine] 0.1 mg/24 hr patch semiweekly 1 patch topical .TWICE WEEKLY Discharge Orders: Discharge ED (Routine); Ordered 05/16/23 Ordered By: José Luis Peres Referrals: Migue Castillo, DO [Primary Care Provider] - Discharge Diet: Usual diet Patient Instructions: Opioid Safety, Pain Management Activity Restrictions/Additional Instructions: Thank you for choosing [facility] for your healthcare needs today. Please realize this is an emergency room and that we are providing you with a medical screening exam and this may not be complete and all inclusive of all the testing and or work up that you may need to determine your ailment or severity of your illness. It is very important that you follow up as instructed or that you return to the Emergency Department should you have concerns or if your condition changes or worsens in any way. You are seen today with elevated blood pressure and chest pain your EKGs and your troponins did not show significant abnormalities. Recommend you take a ba by aspirin daily and start Toprol-XL 25 mg daily. You should stop the losartan. Follow-up with a Lexiscan sestamibi stress test which case management make arrangements for as an outpatient. Coding Level of Care Code ED Staff Reporter for Federica Manzanares
[2023-05-16 13:10] LABS: Basophils # 0.1 10^3/uL (0.0-0.1); Basophils % 0.8 %; Eosinophils # 0.1 10^3/uL (0.0-0.8); Hematocrit 49.3 % (36-47); Lymphocytes # 2.5 10^3/uL (0.8-4.8); Lymphocytes % 28.1 %; Mean Corpuscular HGB Conc 33.3 g/dL (30-55); Mean Corpuscular Hemoglobin 30.5 pg (27-33); Mean Corpuscular Volume 91.8 fl (85-98); Mean Platelet Volume 9.5 fL (7.4-10.4); Monocytes # 0.8 10^3/uL (0.2-0.9); Neutrophils # 5.38 10^3/uL (1.8-7.7); Neutrophils % 60.9 %; Nucleated Red Blood Cells % 0 %; Platelet Count 312 10^3/cmm (157-399); Red Blood Count 5.37 10^6/uL (3.85-5.65); Red Cell Distribution Width 12.4 % (12.1-15.1); White Blood Count 8.85 10^3/uL (3.29-11.43)
[2023-05-16 13:35] LABS: Alanine Aminotransferase 15 U/L (0-33); Albumin Level 4.3 g/dL (3.5-5.2); Alkaline Phosphatase 64 U/L (35-105); Anion Gap 14.8 (5-19); Aspartate Amino Transferase 14 U/L (0-32); Blood Urea Nitrogen 11 mg/dL (6-20); Carbon Dioxide 26 mmol/L (22-29); Chloride 100 mmol/L (98-107); Globulin 2.8 g/dL (1.3-4.6); Glucose 104 mg/dL (65-115); Potassium 4.8 mmol/L (3.5-5.1); Sodium 136 mmol/L (136-145); Total Bilirubin 0.3 mg/dL (0.15-1.2); Total Protein 7.1 g/dL (6.6-8.7)
[2023-05-16 13:38] LABS: Glomerular Filtration Rate 128.6 mL/min (90-130); Osmolality Calculated 288 mOsm/kg (285-295)
[2023-05-16 13:39] LABS: Troponin(5th) Baseline 7 ng/L (0-10)
[2023-05-16 13:48] VITALS: BP 158/89
[2023-05-16] MEDS: losartan 50 mg Tablet PO (13:48)
[2023-05-16] MEDS: lidocaine 2% viscous 15 ML, aluminum-mag hydrox-simethicon 30 ML, sucralfate oral liq 1 GM PO (13:49)
--- NOTE | 2023-05-16 13:49 | PC.PHAR ---
PTS' SISTER YASHIRA HAS VERIFIED MEDICATION LIST. MED LIST NOT PROVIDED BY LAW ENFORCEMENT. 05/16/23
--- NOTE | 2023-05-16 14:24 | ECG_ITS ---
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 Measurements Intervals [place] Rate: 75 P: 66 ID: [id number] QRS: 64 QRSD: 94 T: 72 QT: 381 QTc: 425 Interpretive Statements SINUS RHYTHM POSSIBLE LEFT ATRIAL ENLARGEMENT [-0.1mV P-WAVE IN V1/V2] Compared to ECG 05/16/2023 12:21:08 Ventricular premature complex(es) no longer present Electronically Signed On 05-16-2023 19:44:14 CDT by Luis Alberto Turner M.D. [email or web address] regional [email or web address] medical specialty hospital [facility] south.[email or web address]/store/[id number]
[2023-05-16 16:05] LABS: Troponin 5 2HR 9.54 ng/L (0-10); Troponin 5 2HR Delta 2.54 ABS# (0-10)
== END 2023-05-16 16:55 | disposition home or self-care (01) ==
PROVIDERS: Physician Assistant; Emergency Provider Family Medicine; PCP Family Medicine
DX: R07.89 Other chest pain (principal); I10 Essential (primary) hypertension; F17.210 Nicotine dependence, cigarettes, uncomplicated
CPT/HCPCS: 36415; 71045; 80053; 84484; 85025; 93005; 99285

== ENCOUNTER → 2023-06-17 15:47 | Outpatient (BNVA) | payer MEDICAID, SELFPAY | PROVIDERS: PCP Family Medicine; Visit Provider Nurse Practitioner Psychiatric/Mental Health | DX: Z03.89 Encounter for observation for other suspected diseases and conditions ruled out (principal) | CPT/HCPCS: 80306 ==

== ENCOUNTER 2024-05-15 16:07 | Emergency (ER) | payer MEDICAID, SELFPAY ==
[2024-05-15 16:11] VITALS: BP 93/54; PULSE 90; RESP 18; TEMP 36.8; O2SAT 94; BMI 30.2
--- NOTE | 2024-05-15 16:29 | W.ED.PSYCHS ---
HPI - Psych General: Chief Complaint: Psychiatric Symptoms Stated Complaint: MHE Time Seen by Provider: 05/15/24 16:17 History of Present Illness: 53-year-old female presents emergency room with complaints of what she describes as a manic episode she came very upset earlier today had thoughts of harming herself by cutting but not suicidal or homicidal. She managed to get this sent under control. She states that she is upset because she found out her is in love with another woman. However they have been for 1 year in which they have not been living together and their divorce was final 2 months ago. She is not currently suicidal or homicidal provides a good history and is quite calm and discussing her relationship issues. If she is discharged from here she would go home where she lives alone she does have a good family support in the community. Related Data Home Medications Medication Instructions Recorded Confirmed losartan 100 mg tablet 100 mg PO DAILY 09/18/23 10/30/23 buspirone 10 mg tablet 20 mg PO BID 10/30/23 10/30/23 Previous Rx's Medication Instructions Recorded aripiprazole 2 mg tablet 2 mg PO .q hs #30 tabs 09/18/23 escitalopram oxalate 10 mg tablet 10 mg PO .q am #30 tabs 09/18/23 Allergies Allergy/AdvReac Type Severity Reaction Status Date / Time Penicillins Allergy Unknown Verified 10/30/23 11:49 Review of Systems Const: Denies: fever(s) or chills Card: Denies: chest pain Resp: Denies: dyspnea GI: Denies: abdominal pain : Denies: dysuria, urinary frequency or urinary urgency Musc: Denies: neck pain or back pain Skin/Breast: Denies: rash PFSH ED PFSH: Medical History Imprisonment and other incarceration Marital problems Psychiatric care Social History Smoking and tobacco/nicotine status: current every day tobacco/nicotine user cigarettes Packs smoked per day: 0.5 Alcohol intake: current Alcohol intake frequency: few times a month Substance/Drug Use: current Substance/Drug use frequency: daily Female Reproductive History: Spontaneous abortions: No Physical Exam Const: COMMON NORMALS: no acute distress GENERAL APPEARANCE: cooperative and comfortable ORIENTATION/CONSCIOUSNESS: Yes awake, Yes oriented to person, Yes oriented to place and Yes oriented to time HENMT: COMMON NORMALS: normocephalic, atraumatic and hearing grossly normal bilaterally HEAD & SCALP: normocephalic and atraumatic Resp: COMMON NORMALS: normal respiratory effort, No retractions, No use of accessory muscles and clear to auscultation bilaterally AUSCULTATION: clear to auscultation bilaterally Cardio: COMMON NORMALS: regular rate, regular rhythm and No murmurs present (Cardio) RATE: regular rate RHYTHM: regular rhythm GI: COMMON NORMALS: Soft to palpation and No hepatosplenomegaly present AUSCULTATION: Yes normoactive bowel sounds PALPATION: Yes Soft to palpation, No Tenderness to palpation present (GI), No Guarding due to palpation present (GI) and Yes No hepatosplenomegaly present Extremity: COMMON NORMALS: normal to inspection, capillary refill normal, no clubbing, cyanosis or edema, no calf tenderness and no pedal edema Neuro: SENSORIUM/ORIENTATION: Yes oriented to person, Yes oriented to place and Yes oriented to time Skin: COMMON NORMALS: no rashes or lesions noted GENERAL SKIN EXAM: no rashes or lesions noted Course Vital Signs: Vital signs: Vital Signs Temperature 98.3 F 05/15/24 16:11 Pulse Rate 90 05/15/24 16:11 Respiratory Rate 18 05/15/24 16:11 Blood Pressure 93/54 05/15/24 16:11 Pulse Oximetry 94 05/15/24 16:11 Oxygen Delivery Me thod Room Air 05/15/24 16:11 MDM - Psych Medical Decision Making Patient is not homicidal or suicidal. She has some adjustment disorder however she is actually managing it fairly well she became upset over her moving on from the relationship issues but she was able to control and check her emotions and now was completely resolved. Recommend she continue current medication she can return to [facility] or follow-up with [facility] next week. Discussed with on-call psychiatry they are in agreement. Lab Data 05/15/24 16:32 05/15/24 16:32 Laboratory Results WBC 10.11 10^3/uL (3.29-11.43) 05/15/24 16:32 RBC 4.81 10^6/uL (3.85-5.65) 05/15/24 16:32 Hgb 14.60 g/dL (11.27-16.99) 05/15/24 16:32 Hct 44.2 % (36-47) 05/15/24 16: MCV 91.9 fl (85-98) 05/15/24 16:32 MCH 30.4 pg (27-33) 05/15/24 16: MCHC 33.0 g/dL (30-55) 05/15/24 16: RDW 12.3 % (12.1-15.1) 05/15/24 16:32 Plt Count 353 10^3/cmm (157-399) 05/15/24 16: MPV 9.5 fL (7.4-10.4) 05/15/24 16:32 Neut % (Auto) 70.6 % 05/15/24 16: Lymph % (Auto) 20.4 % 05/15/24 16: [place] % (Auto) 7.8 % 05/15/24 16: Eos % (Auto) 0.4 % 05/15/24 16: Baso % (Auto) 0.5 % 05/15/24 16: Neut # (Auto) 7.14 10^3/uL (1.8-7.7) 05/15/24 16: Lymph # (Auto) 2.1 10^3/uL (0.8-4.8) 05/15/24 16:32 [place] # (Auto) 0.8 10^3/uL (0.2-0.9) 05/15/24 16: Eos # (Auto) 0.0 10^3/uL (0.0-0.8) 05/15/24 16: Baso # (Auto) 0.1 10^3/uL (0.0-0.1) 05/15/24 16: Nucleated RBC % (auto) 0 % 05/15/24: Nucleated RBCs # 0.0 /100WBC 05/15/24 16:32 Sodium 135 mmol/L (136-145) L 05/15/24 16:32 Potassium 3.8 mmol/L (3.5-5.1) 05/15/24 16: Chloride 98 mmol/L (98-107) 05/15/24 16:32 Carbon Dioxide 24 mmol/L (22-29) 05/15/24 16:32 Anion Gap 16.8 (5-19) 05/15/24 16:32 BUN 6 mg/dL (6-20) 05/15/24 16:32 Creatinine 0.6 mg/dL (0.5-0.9) 05/15/24 16:32 GFR Calculation 103.8 mL/min (90-130) 05/15/24 16:32 Glucose 133 mg/dL (65-115) H 05/15/24 16:32 Calculated Osmolality 280 mOsm/kg (285-295) L 05/15/24 16:32 Calcium 8.9 mg/dL (8.5-10.5) 05/15/24 16:32 Total Bilirubin 0.3 mg/dL (0.15-1.2) 05/15/24 16:32 AST 16 U/L (0-32) 05/15/24 16:32 ALT 8 U/L (0-33) 05/15/24 16:32 Alkaline Phosphatase 72 U/L (35-105) 05/15/24 16:32 Total Protein 7.2 g/dL (6.6-8.7) 05/15/24 16:32 Albumin 4.1 g/dL (3.5-5.2) 05/15/24 16:32 Globulin 3.1 g/dL (1.3-4.6) 05/15/24 16:32 Salicylates 0.5 mg/dL (3-10) L 05/15/24 16:32 Acetaminophen < 5.0 ug/mL (10-30) L 05/15/24 16:32 No radiology studies performed this visit Discharge Plan Discharge Patient Disposition: Home Clinical Impression: Generalized anxiety disorder with panic attacks, Adjustment disorder Condition: Stable Prescriptions: No Action losartan 100 mg tablet 100 mg PO DAILY escitalopram oxalate 10 mg tablet 10 mg PO .q am Qty: 30 1RF Rx Instructions: Take one tablet by mouth every morning aripiprazole 2 mg tablet 2 mg PO .q hs Qty: 30 0RF Rx Instructions: Take one tablet daily at bedtime buspirone 10 mg tablet 20 mg PO BID Patient Comments: Take two tablets by mouth every morning and at night Discharge Orders: Discharge ED (Routine); Ordered 05/15/24 Ordered By: José Luis Peres Referrals: Migue Castillo, [Primary Care Provider] - Patient Instructions: Opioid Safety, Pain Management Activity Restrictions/Additional Instructions: You are seen in the emergency room for evaluation for stress. We discussed your case with on-call psychiatrist who recommends continuing current medications and following up with crisis stabilization if you have further problems. 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
[2024-05-15 16:46] LABS: Basophils # 0.1 10^3/uL (0.0-0.1); Basophils % 0.5 %; Eosinophils % 0.4 %; Hematocrit 44.2 % (36-47); Lymphocytes # 2.1 10^3/uL (0.8-4.8); Lymphocytes % 20.4 %; Mean Corpuscular Hemoglobin 30.4 pg (27-33); Mean Corpuscular Volume 91.9 fl (85-98); Mean Platelet Volume 9.5 fL (7.4-10.4); Monocytes # 0.8 10^3/uL (0.2-0.9); Monocytes % 7.8 %; Neutrophils # 7.14 10^3/uL (1.8-7.7); Neutrophils % 70.6 %; Nucleated Red Blood Cells % 0 %; Platelet Count 353 10^3/cmm (157-399); Red Blood Count 4.81 10^6/uL (3.85-5.65); Red Cell Distribution Width 12.3 % (12.1-15.1); White Blood Count 10.11 10^3/uL (3.29-11.43)
[2024-05-15 16:59] LABS: Alanine Aminotransferase 8 U/L (0-33); Albumin Level 4.1 g/dL (3.5-5.2); Alkaline Phosphatase 72 U/L (35-105); Anion Gap 16.8 (5-19); Aspartate Amino Transferase 16 U/L (0-32); Blood Urea Nitrogen 6 mg/dL (6-20); Calcium 8.9 mg/dL (8.5-10.5); Carbon Dioxide 24 mmol/L (22-29); Chloride 98 mmol/L (98-107); Creatinine Clr Calc Pharmacy 100.3425; Globulin 3.1 g/dL (1.3-4.6); Glomerular Filtration Rate 103.8 mL/min (90-130); Glucose 133 mg/dL (65-115); Osmolality Calculated 280 mOsm/kg (285-295); Potassium 3.8 mmol/L (3.5-5.1); Salicylate 0.5 mg/dL (3-10); Sodium 135 mmol/L (136-145); Total Bilirubin 0.3 mg/dL (0.15-1.2); Total Protein 7.2 g/dL (6.6-8.7)
[2024-05-15 17:07] LABS: Acetaminophen < 5.0 ug/mL (10-30)
[2024-05-15 18:07] VITALS: BP 133/90; PULSE 97; RESP 16; O2SAT 98
== END 2024-05-15 18:11 | disposition home or self-care (01) ==
PROVIDERS: Emergency Provider Family Medicine; PCP Family Medicine
DX: F41.0 Panic disorder [episodic paroxysmal anxiety] (principal); F43.22 Adjustment disorder with anxiety; F17.210 Nicotine dependence, cigarettes, uncomplicated
CPT/HCPCS: 36415; 80053; 80307; 85025; 99283

== ENCOUNTER → 2024-07-22 15:13 | Outpatient (BNVA) | payer MEDICAID, SELFPAY | DX: I10 Essential (primary) hypertension (principal) | CPT/HCPCS: 80053; 85025 ==